=== PATIENT | female | born 1975 | race Caucasian/White ===

== ENCOUNTER 2016-12-25 20:36 | Emergency (ER) | payer MEDICAID ==
[~2016-12-25] VITALS: Ht 154.9 cm; Wt 81.0 kg
[2016-12-25 20:45] VITALS: Ht 154.9 cm; Wt 81.0 kg
[2016-12-25 23:00] LABS: URINE BLOOD (Dip) POC 2+ (NEGATIVE)
[2016-12-25] MEDS ORDERED: NITR-58 PO (23:03)
[2016-12-25] MEDS ORDERED: CIPR500T4 PO (23:05)
--- NOTE | 2016-12-26 00:06 | ERD ---
ER Documentation Chief Complaint Date/Time DATE: 12/26/16 TIME: 00:04 Chief Complaint pt c/o burning with urination and low back pain for 1 wk HPI Patient is a 41-year-old female who presents to the ED with dysuria and urgency for 1 week. She denies fever or chills. She complains of low back pain. Denies hematuria. Denies abdominal pain, nausea, vomiting or diarrhea. Denies headache or dizziness. Denies leg pain or swelling. Denies cough, shortness of breath or difficulty breathing. ROS All systems reviewed and are negative except as per history of present illness. Medications Home Meds Active Scripts Ciprofloxacin Hcl* (Ciprofloxacin Hcl*) 500 Mg Tablet, 500 MG PO BID for 7 Days , TAB Prov:JENNI PÉREZ PA-C 12/25/16 Allergies Allergies: Coded Allergies: No Known Allergy (Unverified , 09/29/13) PMhx/Soc Medical and Surgical Hx: pt denies Medical Hx, pt denies Surgical Hx History of Surgery: No Anesthesia Reaction: No Hx Neurological Disorder: No Hx Respiratory Disorders: No Hx Cardiac Disorders: No Hx Psychiatric Problems: No Hx Miscellaneous Medical Probl: No Hx Alcohol Use: No Hx Substance Use: No Hx Tobacco Use: No Smoking Status: Never smoker Physical Exam Vitals Vital Signs Date Time Temp Pulse Resp B/P Pulse Ox O2 Delivery O2 Flow Rate FiO2 12/25/16 20:45 98.3 67 18 175/76 99 Physical Exam GENERAL: Well-developed, well-nourished female. Appears in no acute distress. LUNG: Clear to auscultation bilaterally. No rhonchi, wheezing, rales or coarse breath sounds. HEART: Regular rate and rhythm. No murmurs, rubs or gallops. ABDOMEN: No scars, ecchymosis or rashes noted. Soft, nontender, and nondistended. Positive bowel sounds in all four quadrants. No rebound tenderness , no guarding. (-) McBurneys point tenderness. No CVA tenderness. NEUROLOGIC: Alert and oriented. Moving all four extremities. 5/5 strength in all extremities. Normal speech. Steady gait. SKIN: Normal color. Warm and dry. No rashes or lesions. Capillary refill < 2 seconds Results 24 hrs Laboratory Tests Test 12/25/16 23:02 Bedside Urine Blood 2+ Bedside Urine Glucose (UA) Negative Bedside Urine Ketones (LAB) Negative Bedside Urine Leukocyte Esterase (L 1+ Bedside Urine Nitrite (LAB) Negative Bedside Urine Protein (LAB) Negative Bedside Urine pH (LAB) 7.0 Procedures/MDM ER COURSE: I kept the patient and/or family informed of laboratory and diagnostic imaging results throughout the emergency room course. MEDICAL DECISION MAKING: This is a 41-year-old female who presents with dysuria and urgency. Vital signs were reviewed. Patient is afebrile. Patient is not hypoxic. Patient has a UTI. Her urinalysis shows 1+ leukocytes with no nitrites. Patient does not have CVA tenderness and is afebrile and I have low suspicion for nephrolithiasis. Low suspicion for ACS, AAA, perforated ulcer, bowel obstruction, cholecystitis, choledocholithiasis, cholangitis, pancreatitis, hepatic abscess, appendicitis, diverticulitis, gastroenteritis, hepatitis, peptic ulcer disease, HELLP syndrome. DISCHARGE: At this time, patient is stable for discharge and outpatient management with no new complaints during the ER course. Patient was sent home with ciprofloxacin. Patient will be discharged home with instructions to recheck for new or worsening symptoms such as fever, nausea, weakness, LOC and to follow up with primary care in the next 1-2 days. Patient was advised to return to the ER for any new or worsening symptoms. Plan was discussed and patient and/or family understands and agrees. Home instructions were given. Departure Diagnosis: Primary Impression: Dysuria Condition: Stable Patient Instructions: Dysuria Additional Instructions: Call your primary care doctor TOMORROW for an appointment during the next 1-2 days.See the doctor sooner or return here if your condition worsens before your appointment time. JENNI PÉREZ PA-C Dec 26, 2016 00:06
== END 2016-12-25 23:19 | disposition home or self-care (01) ==
LOC: FTE 20:36
DX: R30.0 Dysuria (principal)
CPT/HCPCS: 81003; Z7502; 99283

== ENCOUNTER 2017-11-23 21:01 | Emergency (ER) | END 2017-11-24 03:30 | disposition home or self-care (01) ==